=== PATIENT | male | born 1990 | race Caucasian/White ===

== ENCOUNTER 2020-07-23 16:54 | Emergency (ER) | payer SELFPAY ==
[~2020-07-23] VITALS: Ht 172.7 cm; Wt 65.8 kg
== END 2020-07-23 17:42 | disposition home or self-care (01) ==
LOC: ED 16:54
DX: S01.81XA Laceration without foreign body of other part of head, initial encounter (principal); W22.8XXA Striking against or struck by other objects, initial encounter
CPT/HCPCS: 12013; 99282-25

== ENCOUNTER 2021-09-10 06:51 | Emergency (ER) | payer OTHER ==
[~2021-09-10] VITALS: Ht 172.7 cm; Wt 65.8 kg
== END 2021-09-10 10:05 | disposition home or self-care (01) ==
LOC: ED 06:51
DX: S01.511A Laceration without foreign body of lip, initial encounter (principal); W19.XXXA Unspecified fall, initial encounter; W26.8XXA Contact with other sharp object(s), not elsewhere classified, initial encounter
CPT/HCPCS: 12013; 99282-25